=== PATIENT | male | born 1975 | race Two or more races ===

== ENCOUNTER 2021-10-14 16:12 | Emergency (ER) | payer SELFPAY ==
[~2021-10-14] VITALS: Ht 167.6 cm; Wt 75.0 kg
[2021-10-14 16:29] VITALS: BP 133/86
[2021-10-14] MEDS ORDERED: KETOROLAC TROMETH 60MG/2ML VIAL IM ONE (18:30)
== END 2021-10-14 21:24 | disposition left against medical advice (07) ==
LOC: ER 16:12 → EDBD 16:12 → ER 21:24
DX: R51.9 Headache, unspecified (principal); M54.2 Cervicalgia; M54.9 Dorsalgia, unspecified; Z53.29 Procedure and treatment not carried out because of patient's decision for other reasons; V49.19XA Passenger injured in collision with other motor vehicles in nontraffic accident, initial encounter; Y93.89 Activity, other specified; Y92.410 Unspecified street and highway as the place of occurrence of the external cause; Y99.8 Other external cause status
CPT/HCPCS: 72040; 72100; J1885